=== PATIENT | male | born 1930 | race African-American/Black ===

== ENCOUNTER 2016-11-13 09:25 | Emergency (ER) | payer OTHER ==
[2016-11-13 09:25] VITALS: BP 0/0
== END 2016-11-13 17:53 | disposition expired ==
LOC: EDUNIT# 09:25 → ER 09:25
DX: I46.9 Cardiac arrest, cause unspecified (principal); I10 Essential (primary) hypertension; J44.9 Chronic obstructive pulmonary disease, unspecified; Z86.73 Personal history of transient ischemic attack (TIA), and cerebral infarction without residual deficits; I25.810 Atherosclerosis of coronary artery bypass graft(s) without angina pectoris
CPT/HCPCS: 31500; 92950; 99291